=== PATIENT | male | born 1930 | race Caucasian/White ===

== ENCOUNTER 2017-04-02 18:29 | Emergency (ER) | payer MEDICARE ==
[~2017-04-02] VITALS: Ht 188 cm; Wt 110.0 kg
[2017-04-02] MEDS ORDERED: ACETAMINOPHEN 325 MG TABLET PO ONE (21:00)
[2017-04-02] MEDS ORDERED: ACETAMINOPHEN 325 MG TABLET ONE (21:30)
[2017-04-02 22:14] VITALS: BP 160/90
== END 2017-04-02 22:17 | disposition home or self-care (01) ==
LOC: ED 21:04
DX: S70.02XA Contusion of left hip, initial encounter (principal); S00.01XA Abrasion of scalp, initial encounter; E11.9 Type 2 diabetes mellitus without complications; W01.0XXA Fall on same level from slipping, tripping and stumbling without subsequent striking against object, initial encounter; Y93.89 Activity, other specified; Y92.009 Unspecified place in unspecified non-institutional (private) residence as the place of occurrence of the external cause; Y99.9 Unspecified external cause status
CPT/HCPCS: 70450; 72125; 72192; 99284